=== PATIENT | male | born 1945 | race Caucasian/White ===

== ENCOUNTER 2018-12-25 09:26 | Emergency (ER) | payer MEDICARE, MEDICAID ==
[~2018-12-25] VITALS: Ht 170.2 cm; Wt 70.3 kg
[2018-12-25 09:34] VITALS: Ht 170.2 cm; Wt 70.3 kg
[2018-12-25 10:35] LABS: BASOPHIL % 0.5 % (0-2); PLATELET COUNT 227 x10^3mcL (130-400); RED CELL DISTRIBUTION WIDTH 13.5 % (11.5-14.5)
[2018-12-25 10:42] LABS: CALCIUM 8.4 mg/dL (8.5-10.1); CARBON DIOXIDE 26.8 mmol/L (21-32); CHLORIDE SERUM 101 mmol/L (98-107); CREATININE SERUM 0.9 mg/dL (0.7-1.3); GLUCOSE SERUM 135 mg/dL (74-106); POTASSIUM SERUM 3.7 mmol/L (3.5-5.1); SODIUM SERUM 138 mmol/L (136-145)
[2018-12-25 10:47] LABS: ALBUMIN 3.8 g/dL (3.4-5.0); ALKALINE PHOSPHATASE 65 U/L (46-116); ALT/SGPT 91 U/L (16-63); AST/SGOT 57 U/L (15-37); BILIRUBIN TOTAL 1.04 mg/dL (0.20-1.00); C REACTIVE PROTEIN 3.2 mg/dL (<=0.9); TOTAL PROTEIN, SERUM 7.7 g/dL (6.4-8.2)
[2018-12-25 14:27] VITALS: BP 129/71
== END 2018-12-25 13:40 | disposition home or self-care (01) ==
LOC: ED 09:26
PROVIDERS: Emergency Medicine
DX: L55.0 Sunburn of first degree (principal)
CPT/HCPCS: J2930; J7030; J7040

== ENCOUNTER 2018-12-28 10:19 | Emergency (ER) | payer MEDICARE, MEDICAID ==
[~2018-12-28] VITALS: Ht 172.7 cm; Wt 70.3 kg
[2018-12-28 10:36] VITALS: Ht 172.7 cm; Wt 70.3 kg
[2018-12-28 11:04] LABS: BASOPHIL % 0.2 % (0-2); PLATELET COUNT 190 x10^3mcL (130-400); RED CELL DISTRIBUTION WIDTH 13.6 % (11.5-14.5)
[2018-12-28 11:12] LABS: CALCIUM 8.1 mg/dL (8.5-10.1); CARBON DIOXIDE 25.4 mmol/L (21-32); CHLORIDE SERUM 105 mmol/L (98-107); CREATININE SERUM 0.8 mg/dL (0.7-1.3); GLUCOSE SERUM 94 mg/dL (74-106); POTASSIUM SERUM 3.6 mmol/L (3.5-5.1); SODIUM SERUM 140 mmol/L (136-145)
[2018-12-28 11:18] LABS: ALBUMIN 3.5 g/dL (3.4-5.0); ALKALINE PHOSPHATASE 67 U/L (46-116); ALT/SGPT 72 U/L (16-63); AMYLASE 99 U/L (25-115); AST/SGOT 50 U/L (15-37); BILIRUBIN TOTAL 0.64 mg/dL (0.20-1.00); LIPASE 243 IU/L (73-393)
[2018-12-28 13:16] VITALS: BP 140/78
== END 2018-12-28 13:16 | disposition home or self-care (01) ==
LOC: ED 10:19
DX: B35.6 Tinea cruris (principal); Z59.0 Homelessness
CPT/HCPCS: 36415